=== PATIENT | female | born 1955 | race African-American/Black ===

== ENCOUNTER 2018-06-21 20:16 | Inpatient (IN) ==
--- NOTE | 2018-06-21 20:34 | ED ---
HPI General Chief Complaint: Shortness of Breath/Dyspnea Stated Complaint: SOB Time Seen by Provider: 06/21/18 20:34 Source: patient Mode of arrival: ambulatory Limitations: no limitations History of Present Illness 63-year-old female patient with history of lupus, rheumatoid arthritis, A. fib currently on Pradaxa, COPD, Raynaud's phenomena presents to the ER today because of shortness of breath, brought in by EMS, had been given Solu-Medrol and nebulizers on the ambulance and is starting to feel better. She has been coughing but denies any significant phlegm production. She denies any chest pains, fevers, or any other symptoms. Related Data Home Medications Medication Instructions Recorded Confirmed atovaquone 750 mg PO DAILY 06/21/18 06/21/18 azathioprine 50 mg PO DAILY 06/21/18 06/21/18 cholecalciferol (vitamin D3) 2,000 unit PO DAILY 06/21/18 06/21/18 [Vitamin D3] diltiazem HCl [Cardizem CD] 120 mg PO DAILY 06/21/18 06/21/18 furosemide 20 mg PO DAILY 06/21/18 06/21/18 hydroxychloroquine [Plaquenil] 200 mg PO DAILY 06/21/18 06/21/18 levalbuterol HCl 0.63 mg INHALATION Q4-6H PRN 06/21/18 06/21/18 macitentan [Opsumit] 10 mg PO DAILY 06/21/18 06/21/18 potassium chloride 10 meq PO BID 06/21/18 06/21/18 prednisone 5 mg PO DAILY 06/21/18 06/21/18 rivaroxaban [Xarelto] 20 mg PO QPM 06/21/18 06/21/18 rosuvastatin [Crestor] 10 mg PO DAILY 06/21/18 06/21/18 sotalol 80 mg PO Q12H 06/21/18 06/21/18 treprostinil [Tyvaso] 1 inh INHALATION Q4H 06/21/18 06/21/18 Allergies Allergy/AdvReac Type Severity Reaction Status Date / Time No Known Allergies Allergy Unverified 06/21/18 20:22 Review of Systems ROS: all other systems reviewed are negative [facility] Medical History Medical History Atrial fibrillation (Acute) CHF (congestive heart failure) (Acute) Emphysema, unspecified (Acute) Esophageal dysmotility (Acute) GERD (gastroesophageal reflux disease) (Acute) Hiatal hernia (Acute) Hx of hysterectomy (Acute) Hypertension (Acute) Kidney stone (Acute) Lupus (Acute) Pulmonary fibrosis (Acute) Pulmonary hypertension (Acute) Raynaud disease (Acute) Rheumatoid arthritis (Acute) Family History Family History Other Congestive heart failure Social History Social History Substance History: No History of Abuse Second Hand Smoke Exposure: No Smoking Status: Never smoker How Often Do You Have a Drink Containing Alcohol: Monthly or less Recent Travel in [facility] within the Last 8 Weeks: No Recent Out of Country Travel within the Last 8 Weeks: No Immunization History Tetanus Immunization: Unsure Hx Influenza Vaccine This Season: No Exam Narrative Exam Narrative: GENERAL: Well-developed elderly -[place] female patient currently in mild respiratory distress. Awake and oriented 3. SKIN: Focused skin assessment warm/dry. HEAD: Atraumatic. Normocephalic. EYES: Pupils equal and round. No scleral icterus. No injection or drainage. ENT: No nasal bleeding or discharge. Mucous membranes pink and moist. NECK: Trachea midline. No JVD. CARDIOVASCULAR: Regular rate and rhythm. No murmur appreciated. RESPIRATORY: No accessory muscle use. Mild intermittent wheezing bilaterally. Breath sounds equal bilaterally. GASTROINTESTINAL: Abdomen soft, non-tender, nondistended. Hepatic and splenic margins not palpable. MUSCULOSKELETAL: No obvious deformities. No clubbing. No cyanosis. No edema. NEUROLOGICAL: Awake and alert. No obvious cranial nerve deficits. Motor grossly within normal limits. Normal speech. PSYCHIATRIC: Appropriate mood and affect; insight and judgment normal. Course Initial Documented Vital Signs Temperature 97.9 F 06/21/18 20:22 Pulse Rate 80 06/21/18 20:22 Respiratory Rate 20 06/21/18 20:22 Blood Pressure 103/64 06/21/18 20:22 Pulse Oximetry 98 06/21/18 20:22 Last Documented Vital Signs Temperature 97.9 F 06/21/18 20:22 Pulse Rate 84 06/21/18 23:40 Respiratory Rate 18 06/21/18 23:40 Blood Pressure 103/64 06/21/18 20:22 Pulse Oximetry 98 06/21/18 23:40 Medical Decision Making MDM Narrative Medical decision making narrative: Patient apparently has been on a course of antibiotics, Bactrim, for UTI which she is finishing up. She was given Solu- Medrol and nebulizers by EMS and continued nebulizers were given in the ER. Breathing improved. However, her saturations are low intermittently and is on 4 L of O2. Chest x-ray showing interstitial changes questionable for underlying atypical pneumonia. IV antibiotics were initiated in the ER including ceftriaxone and Zithromax and at this point, plan would be to admit her for further evaluation and treatment of pneumonia. She appeared at this point has also failed outpatient therapy. Case is discussed with Dr. Cardenas for admission. Medical Screen Exam Complete: Yes Emergency Medical Condition: Yes Differential Diagnosis Differential Diagnosis: COPD versus pneumonia versus bronchitis Lab Data Lab results reviewed: Yes I reviewed the patient's lab results. Result diagrams: 06/21/18 20:35 06/21/18 22:04 Lab Results 06/21/18 06/21/18 06/21/18 Range/Units 20:35 20:35 22:04 WBC 7.8 (4.0-11.0) th/mm3 RBC 5.28 (4.00-5.30) mil/mm3 Hgb 12.7 (11.6-15.3) gm/dL Hct 42.3 (35.0-46.0) % MCV 80.1 (80.0-100.0) fL MCH 24.0 L (27.0-34.0) pg MCHC 29.9 L (32.0-36.0) % RDW 19.1 H (11.6-17.2) % Plt Count 260 (150-450) th/mm3 MPV 8.5 (7.0-11.0) fL Neut % (Auto) 86.1 H (16.0-70.0) % Lymph % (Auto) 7.2 L (9.0-44.0) % [place] % (Auto) 6.3 (0.0-8.0) % Eos % (Auto) 0.0 (0.0-4.0) % Baso % (Auto) 0.4 (0.0-2.0) % Neut # (Auto) 6.7 (1.8-7.7) th/mm3 Lymph # (Auto) 0.6 L (1.0-4.8) th/mm3 [place] # (Auto) 0.5 (0.0-0.9) th/mm3 Eos # (Auto) 0.0 (0.0-0.4) th/mm3 Baso # (Auto) 0.0 (0.0-0.2) th/mm3 WBC Differential . Differential Comment Auto diff final Sodium 139 (136-145) meq/L Potassium 6.4 H 5.6 H D (3.5-5.1) meq/L Chloride 106 (98-107) meq/L Carbon Dioxide 20.7 L (21.0-32.0) meq/L Anion Gap 12 (5-15) meq/L BUN 20 H (7-18) mg/dL Creatinine 1.17 H (0.50-1.00) mg/dL Estimated GFR 56 L (>89) mL/min Random Glucose 149 H (74-106) mg/dL Calcium 9.0 (8.5-10.1) mg/dL Total Bilirubin 0.6 (0.2-1.0) mg/dL AST 74 H (15-37) U/L ALT 114 H (10-53) U/L Alkaline Phosphatase 166 H (45-117) U/L Troponin I Less than 0.02 L (0.02-0.05) ng/mL Total Protein 7.0 (6.4-8.2) g/dL Albumin 3.7 (3.4-5.0) g/dL Imaging Data Attestation: I personally reviewed and interpreted this imaging study as follows : Radiologist's impression: Chest X-Ray 06/21/18 20:31 CONCLUSION: 1. Mild increased interstitial markings are noted consistent with acute or chronic interstitial process. Clinical correlation is recommended. 2. Mild cardiomegaly. Discharge Plan Discharge Disposition Patient Disposition: 30 Still Patient Discharge Condition Condition: Stable Discharge Details Anticipated Discharge Date: 06/21/18 Diagnosis: Community acquired pneumonia, Asthma with exacerbation Physicians Team ED Provider: Koby Centeno Primary Care Provider: UNKNOWN, Attending Provider: Audra Cardenas Status ED Status: Admitted Patient
--- NOTE | 2018-06-21 20:50 | XR ---
EXAM DATE: 06/21/2018 8:42 PM EDT AGE/SEX: 63 years / Female INDICATIONS: Short of breath CLINICAL DATA: This is the patient's initial encounter. Patient reports that signs and symptoms have been present for 1 day and indicates a pain score of 0/10. MEDICAL/SURGICAL HISTORY: Chronic obstructive pulmonary disease. Hypertension. A-fib None. COMPARISON: No prior exams available for comparison. FINDINGS: The heart is enlarged. Mild increased interstitial markings are noted consistent with acute or chroni c interstitial process. Clinical correlation is recommended. CONCLUSION: 1. Mild increased interstitial markings are noted consistent with acute or chronic interstitial proc ess. Clinical correlation is recommended. 2. Mild cardiomegaly. Electronically signed by: Leo Alex MD 06/21/2018 8:49 PM EDT
[2018-06-21 21:23] LABS: Baso % (Auto) 0.4 % (0.0-2.0); Hematocrit 42.3 % (35.0-46.0); Hemoglobin 12.7 gm/dL (11.6-15.3); Lymph # (Auto) 0.6 th/mm3 (1.0-4.8); Lymph % (Auto) 7.2 % (9.0-44.0); Mean Corpuscular Volume 80.1 fL (80.0-100.0); Mean Platelet Volume 8.5 fL (7.0-11.0); Mono # (Auto) 0.5 th/mm3 (0.0-0.9); Mono % (Auto) 6.3 % (0.0-8.0); Neut # (Auto) 6.7 th/mm3 (1.8-7.7); Neut % (Auto) 86.1 % (16.0-70.0); Platelet Count 260 th/mm3 (150-450); Red Blood Count 5.28 mil/mm3 (4.00-5.30); Red Cell Distribution Width 19.1 % (11.6-17.2); White Blood Count 7.8 th/mm3 (4.0-11.0)
[2018-06-21 21:24] LABS: Mean Corpuscular HGB Conc 29.9 % (32.0-36.0)
[2018-06-21 21:42] LABS: Alanine Aminotransferase 114 U/L (10-53); Albumin 3.7 g/dL (3.4-5.0); Alkaline Phosphatase 166 U/L (45-117); Anion Gap 12 meq/L (5-15); Aspartate Aminotransferase 74 U/L (15-37); Blood Urea Nitrogen 20 mg/dL (7-18); Carbon Dioxide 20.7 meq/L (21.0-32.0); Chloride 106 meq/L (98-107); Glomerular Filtration Rate 56 mL/min (>89); Glucose,Random 149 mg/dL (74-106); Sodium 139 meq/L (136-145)
[2018-06-21 21:48] LABS: Potassium 6.4 meq/L (3.5-5.1)
[2018-06-21] MEDS ORDERED: Azithromycin Inj 500 MG in Sodium Chlor 0.9% Inj 250 ML IV.SIG ONE (22:43)
[2018-06-21] MEDS ORDERED: Acetaminophen 325 MG Tablet PO PRN (23:18)
[2018-06-21] MEDS ORDERED: Bisacodyl 10 MG Supp RECTAL PRN (23:18)
--- NOTE | 2018-06-21 23:26 | P.HP ---
History of Present Illness Service: [facility] Primary Care Physician: UNKNOWN History of Present Illness: 63-year-old female with a past medical history for atrial fibrillation anticoagulated with Xarelto, CHF, COPD, GERD, lupus, pulmonary fibrosis, pulmonary hypertension, rheumatoid arthritis in Kumar nods presents to the emergency department for evaluation of shortness of breath. The patient reports she has been having increasing shortness of breath, worse with exertion for the past several weeks. She states today that it was so bad she came to the emergency department for further evaluation. She reports that she is unable to walk more than a few steps without becoming severely short of breath and having to rest. She endorses a cough productive of sputum. She denies any fever/chills. No chest pain. No abdominal pain. No nausea/vomiting/diarrhea. No lateralizing signs/symptoms. Inpatient Certification: I certify that the inpatient services were ordered in accordance with Medicare regulations governing the order. This includes certification that hospital inpatient services are reasonable and necessary and in the case of services not specified as inpatient-only under 42 CFR 419.22(n), that they are appropriately provided as inpatient services in accordance to with the 2-midnight benchmark under 43 CFR 412.3(e) Estimated Total Length of Stay (Days): 2 Plans for Post Hospital Care: Home Review of Systems All other systems reviewed negative except as stated in HPI [facility] - History History Provided By: Patient, Rn Staff / EMT - Medical History Medical History: Medical History (Last Reviewed 06/21/18 @ 20:33 by Koby Centeno MD) Atrial fibrillation CHF (congestive heart failure) Emphysema, unspecified Esophageal dysmotility GERD (gastroesophageal reflux disease) Hiatal hernia Hx of hysterectomy Hypertension Kidney stone Lupus Pulmonary fibrosis Pulmonary hypertension Raynaud disease Rheumatoid arthritis - Family History Family History: Family History (Last Updated 06/21/18 @ 23:22 by Audra Cardenas MD) Other Congestive heart failure - Tobacco History Second Hand Smoke Exposure: No Tobacco Use In Past 30 Days: No Smoking Status: Never smoker - Alcohol History How Often Do You Have a Drink Containing Alcohol: Monthly or less - Substance Use History Substance History: No History of Abuse - Travel History Recent Travel in the [place] Within the Last 8 Weeks: No Recent Travel Out of the Country Within the Last 8 Weeks: No - Immunization History Tetanus Immunization: Unsure Hx Influenza Vaccine This Season: No Medications and Allergies Active Medications: Active Medications Azithromycin 500 mg/ Sodium (Chloride) 250 mls @ 250 mls/hr IV.SIG ONCE ONE Stop: 06/21/18 23:42 Allergies Allergy/AdvReac Type Severity Reaction Status Date / Time No Known Allergies Allergy Unverified 06/21/18 20:22 Home Medications Medication Instructions Recorded Confirmed Type atovaquone 750 mg PO DAILY 06/21/18 06/21/18 History azathioprine 50 mg PO DAILY 06/21/18 06/21/18 History cholecalciferol (vitamin D3) 2,000 unit PO DAILY 06/21/18 06/21/18 History [Vitamin D3] diltiazem HCl [Cardizem CD] 120 mg PO DAILY 06/21/18 06/21/18 History furosemide 20 mg PO DAILY 06/21/18 06/21/18 History hydroxychloroquine [Plaquenil] 200 mg PO DAILY 06/21/18 06/21/18 History levalbuterol HCl 0.63 mg INHALATION Q4-6H PRN 06/21/18 06/21/18 History macitentan [Opsumit] 10 mg PO DAILY 06/21/18 06/21/18 History potassium chloride 10 meq PO BID 06/21/18 06/21/18 History prednisone 5 mg PO DAILY 06/21/18 06/21/18 History rivaroxaban [Xarelto] 20 mg PO QPM 06/21/18 06/21/18 History rosuvastatin [Crestor] 10 mg PO DAILY 06/21/18 06/21/18 History sotalol 80 mg PO Q12H 06/21/18 06/21/18 History treprostinil [Tyvaso] 1 inh INHALATION Q4H 06/21/18 06/21/18 History Exam Vital signs: Vital Signs 06/21/18 20:22 06/21/18 20:44 Temperature 97.9 F Pulse Rate 80 78 Respiratory Rate 20 20 Blood Pressure 103/64 Pulse Oximetry 98 Intake & Output 06/21/18 06/21/18 06/22/18 06:59 18:59 06:59 Weight 63.503 kg Narrative: Gen.: No acute distress Head: Normocephalic. Atraumatic. EENT: Pupils equal round and reactive to light. Nose without drainage. Airway intact. Throat without injection. Cardiovascular: Regular rate and rhythm. No murmurs, rubs or gallops. Respiratory: Poor air movement. Bilateral wheezing. Abdomen: Soft, nontender, nondistended. No peritoneal signs. Musculoskeletal: No gross deformities. No edema. Skin: No obvious rashes or erythema. Neuro: Sensory and motor grossly intact. Cranial nerves II through XII grossly intact. Results - Labs CBC & Chem 7: 06/21/18 20:35 06/21/18 22:04 Labs: Laboratory Results - last 24 hr 06/21/18 06/21/18 06/21/18 20:35 20:35 22:04 WBC 7.8 RBC 5.28 Hgb 12.7 Hct 42.3 MCV 80.1 MCH 24.0 L MCHC 29.9 L RDW 19.1 H Plt Count 260 MPV 8.5 Neut % (Auto) 86.1 H Lymph % (Auto) 7.2 L [place] % (Auto) 6.3 Eos % (Auto) 0.0 Baso % (Auto) 0.4 Neut # (Auto) 6.7 Lymph # (Auto) 0.6 L [place] # (Auto) 0.5 Eos # (Auto) 0.0 Baso # (Auto) 0.0 WBC Differential . Differential Comment Auto diff final Sodium 139 Potassium 6.4 H 5.6 H D Chloride 106 Carbon Dioxide 20.7 L Anion Gap 12 BUN 20 H Creatinine 1.17 H Estimated GFR 56 L Random Glucose 149 H Calcium 9.0 Total Bilirubin 0.6 AST 74 H ALT 114 H Alkaline Phosphatase 166 H Troponin I Less than 0.02 L Total Protein 7.0 Albumin 3.7 - Imaging Impressions Chest X-Ray 06/21/18 20:31 CONCLUSION: 1. Mild increased interstitial markings are noted consistent with acute or chronic interstitial process. Clinical correlation is recommended. 2. Mild cardiomegaly. Caprini VTE Risk Assessment Caprini VTE Risk Assessment: Moderate/High Risk (score >= 2) Caprini Risk Assessment Model: Point Value = 1 Point Value = 2 Point Value = 3 Point Value = 5 Age 41-60 Minor surgery BMI > 25 kg/m2 Swollen legs Varicose veins or History of unexplained or recurrent spontaneous Oral contraceptives or hormone replacement Sepsis (< 1 month) Serious lung disease, including pneumonia (< 1 month) Abnormal pulmonary function Acute myocardial infarction Congestive heart failure (< 1 month) History of inflammatory bowel disease Medical patient at bed rest Age 61-74 Arthroscopic surgery Major open surgery (> 45 min) Laparoscopic surgery (> 45 min) Malignancy Confined to bed (> 72 hours) Immobilizing plaster cast Central venous access Age >= 75 History of VTE Family history of VTE Factor V Leiden Prothrombin [id number] Lupus anticoagulant Anticardiolipin antibodies Elevated serum homocysteine Heparin-induced thrombocytopenia Other congenital or acquired thrombophilia Stroke (< 1 month) Elective arthroplasty Hip, pelvis, or leg fracture Acute spinal cord injury (< 1 month) Prophylaxis Regimen: Total Risk Factor Score Risk Level Prophylaxis Regimen 0-1 Low Early ambulation 2 Moderate Order ONE of the following: *Sequential Compression Device (SCD) *Heparin 5000 units SQ BID 3-4 Higher Order ONE of the following medications: *Heparin 5000 units SQ TID *Enoxaparin/Lovenox 40 mg SQ daily (WT < 150 kg, CrCl > 30 mL/min) *Enoxaparin/Lovenox 30 mg SQ daily (WT < 150 kg, CrCl > 10-29 mL/min) *Enoxaparin/Lovenox 30 mg SQ BID (WT < 150 kg, CrCl > 30 mL/min) AND/OR *Sequential Compression Device (SCD) 5 or more Highest Order ONE of the following medications: *Heparin 5000 units SQ TID (Preferred with Epidurals) *Enoxaparin/Lovenox 40 mg SQ daily (WT < 150 kg, CrCl > 30 mL/min) *Enoxaparin/Lovenox 30 mg SQ daily (WT < 150 kg, CrCl > 10-29 mL/min) *Enoxaparin/Lovenox 30 mg SQ BID (WT < 150 kg, CrCl > 30 mL/min) AND *Sequential Compression Device (SCD) Assessment and Plan - Plan Assessment/plan: 1. COPD exacerbation/PNA Patient with hypoxia, requiring supplemental oxygen Chest x-ray significant for increased interstitial markings consistent with acute versus chronic interstitial process, given increased sputum production and cough with shortness of breath concerning for pneumonia Rocephin/azithromycin Duo nebs Solu-Medrol 2. Atrial fibrillation Continue anticoagulation with Xarelto Continue home medications 3. Rheumatoid arthritis/lupus Continue home medications 4. Hypertension/pulmonary hypertension/CHF Continue home medications 5. Urinary tract infection Patient previously diagnosed with urinary tract infection, has 1 more day of Bactrim UA pending Antibiotics as above FEN Heart healthy diet Electrolytes: Monitor and replete as needed Xarelto
[2018-06-21] MEDS ORDERED: Heparin - SQ 10,000 UNITS/ML Vial SQ SCH (23:30)
[2018-06-22 00:51] LABS: Bilirubin,Urine Negative (Negative); Clarity,Urine Hazy (Clear); Color,Urine Yellow (Yellw/Straw); Glucose,Urine (UA) Negative (Negative); Hyaline Casts,Urine 21 /lpf (0-3); Leukocyte Esterase,Urine Negative (Negative); Mucus,Urine Few /lpf (Occasional); Nitrite,Urine Negative (Negative); Specific Gravity,Urine 1.018 (1.002-1.035); Squamous Epithelial Cell,Urine <1 /hpf (0-5); Urobilinogen,Urine 4 or Greater mg/dL (Less than 2)
[2018-06-22] MEDS: MethylPREDNISolone Sod Succinate Inj 125 MG/2 ML Vial IV.PUSH SCH ×5 (01:39→23:29)
[2018-06-22 07:52] LABS: Baso % (Auto) 0.4 % (0.0-2.0); Hematocrit 37.7 % (35.0-46.0); Hemoglobin 11.6 gm/dL (11.6-15.3); Lymph # (Auto) 0.5 th/mm3 (1.0-4.8); Lymph % (Auto) 10.6 % (9.0-44.0); Mean Corpuscular Hemoglobin 23.7 pg (27.0-34.0); Mean Corpuscular Volume 76.7 fL (80.0-100.0); Mean Platelet Volume 8.5 fL (7.0-11.0); Mono # (Auto) 0.1 th/mm3 (0.0-0.9); Neut # (Auto) 3.8 th/mm3 (1.8-7.7); Platelet Count 223 th/mm3 (150-450); Red Blood Count 4.91 mil/mm3 (4.00-5.30); Red Cell Distribution Width 18.3 % (11.6-17.2); White Blood Count 4.4 th/mm3 (4.0-11.0)
[2018-06-22 08:04] LABS: Mean Corpuscular HGB Conc 30.9 % (32.0-36.0)
[2018-06-22 08:19] LABS: Anion Gap 10 meq/L (5-15); Blood Urea Nitrogen 22 mg/dL (7-18); Calcium 8.6 mg/dL (8.5-10.1); Chloride 109 meq/L (98-107); Glomerular Filtration Rate 83 mL/min (>89); Glucose,Random 102 mg/dL (74-106); Potassium 4.8 meq/L (3.5-5.1); Sodium 142 meq/L (136-145)
[2018-06-22] MEDS ORDERED: MACITENTAN 10 MG PO SCH (09:00)
[2018-06-22 09:41] LABS: Albumin 3.5 g/dL (3.4-5.0); Aspartate Aminotransferase 59 U/L (15-37); Total Protein 6.2 g/dL (6.4-8.2)
[2018-06-22 09:53] LABS: Alanine Aminotransferase 140 U/L (10-53)
[2018-06-22 09:55] LABS: Alkaline Phosphatase 162 U/L (45-117)
[2018-06-22] MEDS: azaTHIOprine 50 MG Tablet PO SCH (10:07)
--- NOTE | 2018-06-22 10:07 | P.PNIM ---
Subjective Interval history: Follow-up shortness of breath. Patient laying in bed and O2 via nasal cannula complains of shortness of breath on exertion, better with rest. Patient complains of some coughing previously none today. Denies any chest pain, nausea vomiting or dizziness. Patient stated she uses oxygen at home for many years since 2014. States that she has been seeing Dr. Roberts as her return to [facility] an [facility]. Patient also complaining of mild lower extremity swelling, which she is taking Lasix at home. Patient states that she tends to elevate her legs and watch her sodium intake. Patient states that she had atrial fibrillation and has been seeing a water truck driver in [place] Dr. Corral. Physical Exam Vital signs: Vital Signs 06/21/18 20:22 06/21/18 20:44 06/21/18 21:00 Temperature 97.9 F Pulse Rate 80 78 78 Respiratory Rate 20 20 16 Blood Pressure 103/64 105/80 Pulse Oximetry 98 98 06/21/18 22:00 06/21/18 23:00 06/21/18 23:40 Temperature Pulse Rate 82 82 84 Respiratory Rate 18 16 18 Blood Pressure 100/70 106/75 Pulse Oximetry 95 97 98 06/22/18 00:00 06/22/18 01:26 06/22/18 01:54 Temperature 97.3 F L Pulse Rate 82 89 85 Respiratory Rate 16 20 20 Blood Pressure 100/78 83/65 L 94/60 L Pulse Oximetry 98 87 L 93 L 06/22/18 02:00 06/22/18 03:39 06/22/18 03:42 Temperature Pulse Rate 90 Respiratory Rate 19 Blood Pressure Pulse Oximetry 93 L 96 96 06/22/18 04:00 06/22/18 07:29 06/22/18 08:00 Temperature 97.7 F 97.6 F Pulse Rate 86 83 82 Respiratory Rate 20 14 14 Blood Pressure 106/79 121/80 Pulse Oximetry 90 L 94 L 98 Intake & Output 06/21/18 06/22/18 06/22/18 18:59 06:59 18:59 Intake Total 350 / 350 Balance 350 / 350 Weight 60.7 kg Intake: IV 350 / 350 Azithromycin Inj 500 MG In NS 250 / 250 Inj 250 ML @ 250 mls/hr IV.SIG ONCE ONE Rx#:[id number] Rocephin Inj 1,000 MG In NS Inj 100 / 100 100 ML @ 200 mls/hr IV.SIG ONCE ONE Rx#:[id number] Other: Weight On Admission 60.7 kg Narrative: GENERAL: frail female with no apparent distress SKIN: Warm and dry. HEAD: Atraumatic. Normocephalic. EYES: Pupils equal and round. No scleral icterus. No injection or drainage. ENT: No nasal bleeding or discharge. Mucous membranes pink and moist. NECK: Trachea midline. No JVD. CARDIOVASCULAR: Regular rate and rhythm. bilateral lower extremity trace edema RESPIRATORY: No accessory muscle use. slight expiratory wheezes with auscultation. Breath sounds equal bilaterally. GASTROINTESTINAL: Abdomen soft, non-tender, nondistended. Hepatic and splenic margins not palpable. MUSCULOSKELETAL: Extremities without clubbing, cyanosis, or edema. No obvious deformities. NEUROLOGICAL: Awake and alert. No obvious cranial nerve deficits. Motor grossly within normal limits. Five out of 5 muscle strength in the arms and legs. Normal speech. PSYCHIATRIC: Appropriate mood and affect; insight and judgment normal. Results - Labs CBC & Chem 7: 06/22/18 05:47 06/22/18 05:47 Laboratory Results - last 24 hr 06/21/18 06/21/18 06/21/18 20:35 20:35 22:04 WBC 7.8 RBC 5.28 Hgb 12.7 Hct 42.3 MCV 80.1 MCH 24.0 L MCHC 29.9 L RDW 19.1 H Plt Count 260 MPV 8.5 Neut % (Auto) 86.1 H Lymph % (Auto) 7.2 L Howell % (Auto) 6.3 Eos % (Auto) 0.0 Baso % (Auto) 0.4 Neut # (Auto) 6.7 Lymph # (Auto) 0.6 L Howell # (Auto) 0.5 Eos # (Auto) 0.0 Baso # (Auto) 0.0 WBC Differential . Differential Comment Auto diff final Sodium 139 Potassium 6.4 H 5.6 H D Chloride 106 Carbon Dioxide 20.7 L Anion Gap 12 BUN 20 H Creatinine 1.17 H Estimated GFR 56 L Random Glucose 149 H Calcium 9.0 Prot Corrected Calcium Total Bilirubin 0.6 AST 74 H ALT 114 H Alkaline Phosphatase 166 H Troponin I Less than 0.02 L Total Protein 7.0 Albumin 3.7 Urine Color Urine Clarity Urine pH Ur Specific Hidalgo Urine Protein Urine Glucose (UA) Urine Ketones Urine Occult Blood Urine Nitrate Urine Bilirubin Urine Urobilinogen Ur Leukocyte Esterase Urine RBC Urine WBC Ur Squamous Epith Cells Hyaline Casts Urine Mucus Micro UA Comment Ur Microscopic Review Urine Culture Comments 06/22/18 06/22/18 06/22/18 00:28 05:47 05:47 WBC 4.4 RBC 4.91 Hgb 11.6 Hct 37.7 MCV 76.7 L MCH 23.7 L MCHC 30.9 L RDW 18.3 H Plt Count 223 MPV 8.5 Neut % (Auto) 87.0 H Lymph % (Auto) 10.6 Howell % (Auto) 2.0 Eos % (Auto) 0.0 Baso % (Auto) 0.4 Neut # (Auto) 3.8 Lymph # (Auto) 0.5 L Howell # (Auto) 0.1 Eos # (Auto) 0.0 Baso # (Auto) 0.0 WBC Differential . Differential Comment Auto diff final Sodium 142 Potassium 4.8 D Chloride 109 H Carbon Dioxide 23.0 Anion Gap 10 BUN 22 H Creatinine 0.83 Estimated GFR 83 L Random Glucose 102 Calcium 8.6 Prot Corrected Calcium Total Bilirubin 0.3 AST 59 H ALT 140 H Alkaline Phosphatase 162 H Troponin I Total Protein 6.2 L D Albumin 3.5 Urine Color Yellow Urine Clarity Hazy H Urine pH 6.0 Ur Specific Hidalgo 1.018 Urine Protein 100 H Urine Glucose (UA) Negative Urine Ketones Negative Urine Occult Blood Negative Urine Nitrate Negative Urine Bilirubin Negative Urine Urobilinogen 4 or greater Ur Leukocyte Esterase Negative Urine RBC 1 Urine WBC 1 Ur Squamous Epith Cells <1 Hyaline Casts 21 Urine Mucus Few H Micro UA Comment Culture not ind Ur Microscopic Review Not Reportable Urine Culture Comments Culture not ind 06/22/18 05:47 WBC RBC Hgb Hct MCV MCH MCHC RDW Plt Count MPV Neut % (Auto) Lymph % (Auto) Howell % (Auto) Eos % (Auto) Baso % (Auto) Neut # (Auto) Lymph # (Auto) Howell # (Auto) Eos # (Auto) Baso # (Auto) WBC Differential Differential Comment Sodium Cancelled Potassium Cancelled Chloride Cancelled Carbon Dioxide Cancelled Anion Gap Cancelled BUN Cancelled Creatinine Cancelled Estimated GFR Cancelled Random Glucose Cancelled Calcium Cancelled Prot Corrected Calcium Cancelled Total Bilirubin Cancelled AST Cancelled ALT Cancelled Alkaline Phosphatase Cancelled Troponin I Total Protein Cancelled Albumin Cancelled Urine Color Urine Clarity Urine pH Ur Specific [place] Urine Protein Urine Glucose (UA) Urine Ketones Urine Occult Blood Urine Nitrate Urine Bilirubin Urine Urobilinogen Ur Leukocyte Esterase Urine RBC Urine WBC Ur Squamous Epith Cells Hyaline Casts Urine Mucus Micro UA Comment Ur Microscopic Review Urine Culture Comments - Imaging Impressions Chest X-Ray 06/21/18 20:31 CONCLUSION: 1. Mild increased interstitial markings are noted consistent with acute or chronic interstitial process. Clinical correlation is recommended. 2. Mild cardiomegaly. Assessment and Plan - Assessment (1) COPD exacerbation Code(s): J44.1 - Chronic obstructive pulmonary disease with (acute) exacerbation Status: Acute (2) Afib Code(s): I48.91 - Unspecified atrial fibrillation Status: Acute (3) CHF (congestive heart failure) Code(s): I50.9 - Heart failure, unspecified Status: Acute - Plan Patient is a 63-year-old female with a past medical history for atrial fibrillation anticoagulated with Xarelto, CHF, COPD, GERD, lupus, pulmonary fibrosis, pulmonary hypertension, rheumatoid arthritis, Raynaud's phenomena who presents to the emergency department for evaluation of shortness of breath. The patient reports she has been having increasing shortness of breath, worse with exertion for the past several weeks. COPD exacerbation/PNA Chest x-ray significant for increased interstitial markings consistent with acute versus chronic interstitial process, given increased sputum production and cough with shortness of breath concerning for pneumonia - with hypoxia, continue Oxygen supplementation -continue Rocephin/azithromycin -continue Duo nebs -continue Solu-Medrol Atrial fibrillation -Continue anticoagulation with Xarelto -Continue home medications -HR slightly elevated today in 100's, continue sotalol and diltiazem, monitor HR Rheumatoid arthritis/lupus Continue home medications Hypertension/pulmonary hypertension/CHF -Continue home medications -check BNP Urinary tract infection -Patient previously diagnosed with urinary tract infection -UA culture not indicated -monitor signs and symptoms Elevated Liver Enzymes - improving -monitor LFT's Discharge Planning: Plan to d/c home when respiratory status improved. (Patient already had home Oxygen).
[2018-06-22] MEDS: Hydroxychloroquine 200 MG Tablet PO SCH (10:08)
[2018-06-22] MEDS: Senna/Docusate Sodium 8.6/50 MG Tablet PO SCH ×2 (10:09→21:44)
[2018-06-22] MEDS: dilTIAZem CD 120 MG Capsule PO SCH (10:12)
[2018-06-22] MEDS: Furosemide 20 MG Tablet PO SCH (10:12)
[2018-06-22] MEDS: ATOVAQUONE 750 MG/5 ML PO SCH (10:13)
[2018-06-22] MEDS: Rivaroxaban 20 MG Tablet PO SCH (17:55)
[2018-06-22] MEDS: Azithromycin Inj 500 MG in Sodium Chlor 0.9% Inj 250 ML IV.SIG SCH (23:29)
[2018-06-23] MEDS: MethylPREDNISolone Sod Succinate Inj 125 MG/2 ML Vial IV.PUSH SCH (05:52)
[2018-06-23 07:23] LABS: Baso % (Auto) 0.2 % (0.0-2.0); Hematocrit 36.8 % (35.0-46.0); Hemoglobin 11.3 gm/dL (11.6-15.3); Lymph # (Auto) 0.3 th/mm3 (1.0-4.8); Lymph % (Auto) 5.1 % (9.0-44.0); Mean Corpuscular Hemoglobin 23.9 pg (27.0-34.0); Mean Corpuscular Volume 77.8 fL (80.0-100.0); Mean Platelet Volume 8.5 fL (7.0-11.0); Mono # (Auto) 0.2 th/mm3 (0.0-0.9); Mono % (Auto) 4.3 % (0.0-8.0); Neut # (Auto) 5.3 th/mm3 (1.8-7.7); Neut % (Auto) 90.4 % (16.0-70.0); Platelet Count 228 th/mm3 (150-450); Red Blood Count 4.73 mil/mm3 (4.00-5.30); Red Cell Distribution Width 18.6 % (11.6-17.2); White Blood Count 5.8 th/mm3 (4.0-11.0)
[2018-06-23 07:25] LABS: Mean Corpuscular HGB Conc 30.7 % (32.0-36.0)
[2018-06-23 07:46] LABS: Alanine Aminotransferase 87 U/L (10-53); Albumin 3.2 g/dL (3.4-5.0); Anion Gap 7 meq/L (5-15); Aspartate Aminotransferase 28 U/L (15-37); Blood Urea Nitrogen 23 mg/dL (7-18); Carbon Dioxide 25.6 meq/L (21.0-32.0); Chloride 107 meq/L (98-107); Glomerular Filtration Rate 79 mL/min (>89); Glucose,Random 143 mg/dL (74-106); Potassium 4.9 meq/L (3.5-5.1); Sodium 140 meq/L (136-145)
[2018-06-23 07:48] LABS: Alkaline Phosphatase 141 U/L (45-117); Total Protein 5.9 g/dL (6.4-8.2)
--- NOTE | 2018-06-23 08:57 | P.PNIM ---
Subjective Interval history: Breathing is a little better today, especially at rest, but the patient reports that even walking to the bathroom in her room she is getting extremely dyspneic. She states normally she is able to walk around the house without any breathing problems at baseline. Reports she is on 45 L O2 at home, currently on 6. He has a very slight frothy cough. She denies any significant orthopnea. Physical Exam Vital signs: Vital Signs 06/22/18 11:06 06/22/18 12:00 06/22/18 12:30 Temperature 97.3 F L Pulse Rate 100 H 112 H Respiratory Rate 18 26 H Blood Pressure 127/89 Pulse Oximetry 91 L 90 L 06/22/18 16:00 06/22/18 16:34 06/22/18 20:00 Temperature 97.5 F L 98.4 F Pulse Rate 94 H 92 H 95 H Respiratory Rate 18 22 18 Blood Pressure 96/67 L 108/76 Pulse Oximetry 91 L 92 L 06/22/18 20:23 06/22/18 21:49 06/23/18 00:00 Temperature 98.2 F Pulse Rate 92 H 90 Respiratory Rate 17 Blood Pressure 106/69 Pulse Oximetry 92 L 92 L 06/23/18 00:13 06/23/18 04:00 06/23/18 04:49 Temperature Pulse Rate 90 72 87 Respiratory Rate 20 16 Blood Pressure Pulse Oximetry 91 L 99 Intake & Output 06/22/18 06/23/18 06/23/18 18:59 06:59 18:59 Intake Total 800 / 800 350 / 350 Output Total 400 / 400 Balance 400 / 400 350 / 350 Weight 133 lb 13.129 oz Intake: IV 350 / 350 Azithromycin Inj 500 MG In NS 250 / 250 Inj 250 ML @ 250 mls/hr IV.SIG Q24H [facility] Rx#:[id number] Rocephin Inj 1,000 MG In NS Inj 100 / 100 100 ML @ 200 mls/hr IV.SIG Q24H [facility] Rx#:[id number] Oral 800 / 800 Output: Urine 400 / 400 Other: # Voids 2 Date of Last Bowel Movement 06/21/18 Narrative: GENERAL: Well-developed well-nourished. In no acute distress. Appears comfortable on 6 L O2. SKIN: Warm and dry. No lesions noted. CARDIOVASCULAR: Regular rate and rhythm. No murmur appreciated. RESPIRATORY: No accessory muscle use. Clear to auscultation. Breath sounds equal bilaterally. GASTROINTESTINAL: Abdomen soft, non-tender, nondistended. Bowel sounds x4. MUSCULOSKELETAL: No obvious deformities. No clubbing or cyanosis. No edema. NEUROLOGICAL: Awake and alert. Moves upper and lower extremities spontaneously. Normal speech. PSYCHIATRIC: Appropriate mood and affect; insight and judgment normal. Results - Labs CBC & Chem 7: 06/23/18 05:57 06/23/18 05:57 Laboratory Results - last 24 hr 06/22/18 06/22/18 06/22/18 05:47 05:47 05:47 WBC RBC Hgb Hct MCV MCH MCHC RDW Plt Count MPV Neut % (Auto) Lymph % (Auto) Rains % (Auto) Eos % (Auto) Baso % (Auto) Neut # (Auto) Lymph # (Auto) Rains # (Auto) Eos # (Auto) Baso # (Auto) WBC Differential Differential Comment Sodium 142 Cancelled Potassium 4.8 D Cancelled Chloride 109 H Cancelled Carbon Dioxide 23.0 Cancelled Anion Gap 10 Cancelled BUN 22 H Cancelled Creatinine 0.83 Cancelled Estimated GFR 83 L Cancelled Random Glucose 102 Cancelled Calcium 8.6 Cancelled Prot Corrected Calcium Cancelled Total Bilirubin 0.3 Cancelled AST 59 H Cancelled ALT 140 H Cancelled Alkaline Phosphatase 162 H Cancelled B-Natriuretic Peptide 1474 H Total Protein 6.2 L D Cancelled Albumin 3.5 Cancelled 06/23/18 06/23/18 05:57 05:57 WBC 5.8 RBC 4.73 Hgb 11.3 L Hct 36.8 MCV 77.8 L MCH 23.9 L MCHC 30.7 L RDW 18.6 H Plt Count 228 MPV 8.5 Neut % (Auto) 90.4 H Lymph % (Auto) 5.1 L Rains % (Auto) 4.3 Eos % (Auto) 0.0 Baso % (Auto) 0.2 Neut # (Auto) 5.3 Lymph # (Auto) 0.3 L Rains # (Auto) 0.2 Eos # (Auto) 0.0 Baso # (Auto) 0.0 WBC Differential . Differential Comment Auto diff final Sodium 140 Potassium 4.9 Chloride 107 Carbon Dioxide 25.6 Anion Gap 7 BUN 23 H Creatinine 0.87 Estimated GFR 79 L Random Glucose 143 H Calcium 9.0 Prot Corrected Calcium Total Bilirubin 0.2 AST 28 ALT 87 H Alkaline Phosphatase 141 H B-Natriuretic Peptide Total Protein 5.9 L Albumin 3.2 L Microbiology 06/21/18 23:35 Blood - Peripheral Aerobic Blood Culture - Preliminary No growth in 1 day 06/21/18 23:35 Blood - Peripheral Anaerobic Blood Culture - Preliminary No growth in 1 day 06/21/18 23:30 Blood - Peripheral Aerobic Blood Culture - Preliminary No growth in 1 day 06/21/18 23:30 Blood - Peripheral Anaerobic Blood Culture - Preliminary No growth in 1 day Assessment and Plan - Plan 63-year-old female with a past medical history for atrial fibrillation anticoagulated with Xarelto, CHF, COPD, GERD, lupus, pulmonary fibrosis, pulmonary hypertension, rheumatoid arthritis, Raynaud's phenomena who presented for evaluation of shortness of breath. The patient reports she has been having increasing shortness of breath, worse with exertion for the past several weeks. COPD exacerbation/PNA Chest x-ray significant for increased interstitial markings consistent with acute versus chronic interstitial process, given increased sputum production and cough with shortness of breath concerning for pneumonia -with hypoxia, continue Oxygen supplementation, currently on 6 L, titrate down to baseline 45 L -continue Rocephin/azithromycin -continue Duo nebs -continue Solu-Medrol, taper dose to 40 mg -Ambulate with PT Atrial fibrillation, currently NSR -Continue anticoagulation with Xarelto -Continue home medications Rheumatoid arthritis/lupus Continue home medications Congestive heart failure -Currently appears compensated on home dose of Lasix. Elevated Liver Enzymes -Mildly elevated and trending down -monitor Discharge Planning: Anticipate discharge in 12 days pending improvement in breathing
[2018-06-23] MEDS: Furosemide 20 MG Tablet PO SCH (09:36)
[2018-06-23] MEDS: Senna/Docusate Sodium 8.6/50 MG Tablet PO SCH ×2 (09:36→23:06)
[2018-06-23] MEDS: azaTHIOprine 50 MG Tablet PO SCH (09:38)
[2018-06-23] MEDS: dilTIAZem CD 120 MG Capsule PO SCH (09:39)
[2018-06-23] MEDS: ATOVAQUONE 750 MG/5 ML PO SCH (09:39)
[2018-06-23] MEDS: Hydroxychloroquine 200 MG Tablet PO SCH (09:39)
[2018-06-23] MEDS: MethylPREDNISolone Sod Succinate Inj 40 MG/ML Vial IV.PUSH SCH ×2 (11:50→17:25)
[2018-06-23] MEDS: Rivaroxaban 20 MG Tablet PO SCH (17:25)
[2018-06-23] MEDS: Azithromycin Inj 500 MG in Sodium Chlor 0.9% Inj 250 ML IV.SIG SCH (23:07)
[2018-06-24] MEDS: MethylPREDNISolone Sod Succinate Inj 40 MG/ML Vial IV.PUSH SCH ×4 (00:12→15:31)
[2018-06-24] MEDS: dilTIAZem CD 120 MG Capsule PO SCH (08:28)
[2018-06-24] MEDS: ATOVAQUONE 750 MG/5 ML PO SCH (08:41)
[2018-06-24] MEDS: Senna/Docusate Sodium 8.6/50 MG Tablet PO SCH ×2 (08:41→22:24)
[2018-06-24] MEDS: Furosemide 20 MG Tablet PO SCH (08:42)
[2018-06-24] MEDS: dilTIAZem 30 MG Tablet PO SCH ×5 (08:42→22:25)
[2018-06-24] MEDS: Hydroxychloroquine 200 MG Tablet PO SCH (08:43)
[2018-06-24] MEDS: azaTHIOprine 50 MG Tablet PO SCH (08:43)
[2018-06-24] MEDS ORDERED: Magnesium Citrate Liq 300 ML Bottle PO ONE (10:40)
--- NOTE | 2018-06-24 13:46 | P.PNIM ---
Subjective Interval history: Breathing is much better today, especially at rest, but the patient reports that with minimal exertion she is gets SOB. Reports she is on 45 L O2 at home , currently on 6. She denies any significant orthopnea. Physical Exam Vital signs: Vital Signs 06/23/18 16:00 06/23/18 17:08 06/23/18 20:00 Temperature 97.9 F 97.9 F Pulse Rate 76 76 75 Respiratory Rate 18 19 18 Blood Pressure 91/63 L 99/72 L Pulse Oximetry 98 95 06/23/18 22:07 06/24/18 00:00 06/24/18 03:52 Temperature 97.5 F L Pulse Rate 87 81 79 Respiratory Rate 16 18 16 Blood Pressure 107/74 Pulse Oximetry 92 L 97 06/24/18 04:00 06/24/18 06:58 06/24/18 08:00 Temperature 97.4 F L 97.2 F L Pulse Rate 77 78 96 H Respiratory Rate 18 17 Blood Pressure 101/72 111/72 Pulse Oximetry 97 92 L 06/24/18 09:00 06/24/18 11:46 06/24/18 12:00 Temperature 97.6 F Pulse Rate 96 H 87 89 Respiratory Rate 24 16 Blood Pressure 113/55 L Pulse Oximetry 90 L Intake & Output 06/23/18 06/24/18 06/24/18 18:59 06:59 18:59 Intake Total 1600 / 1600 350 / 350 Output Total 600 / 600 300 / 300 Balance 1000 / 1000 50 / 50 Weight 66.4 kg Intake: IV 350 / 350 Azithromycin Inj 500 MG In NS 250 / 250 Inj 250 ML @ 250 mls/hr IV.SIG Q24H [facility] Rx#:[id number] Rocephin Inj 1,000 MG In NS Inj 100 / 100 100 ML @ 200 mls/hr IV.SIG Q24H [facility] Rx#:[id number] Oral 1600 / 1600 Output: Urine 600 / 600 300 / 300 Other: Date of Last Bowel Movement 06/21/18 06/22/18 06/22/18 Narrative: GENERAL: Well-developed well-nourished. In no acute distress. Appears comfortable on 6 L O2. SKIN: Warm and dry. No lesions noted. CARDIOVASCULAR: Regular rate and rhythm. No murmur appreciated. RESPIRATORY: No accessory muscle use. Clear to auscultation. Breath sounds equal bilaterally. GASTROINTESTINAL: Abdomen soft, non-tender, nondistended. Bowel sounds x4. MUSCULOSKELETAL: No obvious deformities. No clubbing or cyanosis. No edema. NEUROLOGICAL: Awake and alert. Moves upper and lower extremities spontaneously. Normal speech. PSYCHIATRIC: Appropriate mood and affect; insight and judgment normal. Results - Labs CBC & Chem 7: 06/23/18 05:57 06/23/18 05:57 Microbiology 06/21/18 23:35 Blood - Peripheral Aerobic Blood Culture - Preliminary No growth in 3 days 06/21/18 23:35 Blood - Peripheral Anaerobic Blood Culture - Preliminary No growth in 3 days 06/21/18 23:30 Blood - Peripheral Aerobic Blood Culture - Preliminary No growth in 3 days 06/21/18 23:30 Blood - Peripheral Anaerobic Blood Culture - Preliminary No growth in 3 days Assessment and Plan - Plan 63-year-old female with a past medical history for atrial fibrillation anticoagulated with Xarelto, CHF, COPD, GERD, lupus, pulmonary fibrosis, pulmonary hypertension, rheumatoid arthritis, Raynaud's phenomena who presented for evaluation of shortness of breath. The patient reports she has been having increasing shortness of breath, worse with exertion for the past several weeks. COPD exacerbation/PNA Chest x-ray significant for increased interstitial markings consistent with acute versus chronic interstitial process, given increased sputum production and cough with shortness of breath concerning for pneumonia -with hypoxia, continue Oxygen supplementation, currently on 6 L, titrate down to baseline 45 L -continue Rocephin/azithromycin -continue Duo nebs -continue Solu-Medrol, taper dose to 40 mg Q12H -Ambulate with PT, recommend home with no physical therapy Atrial fibrillation, currently NSR -Continue anticoagulation with Xarelto -Patient takes Cardizem 120 mg extended release at home blood pressure dropped into the high 90s after taking Cardizem yesterday. Cardizem changed to 30 mg 4 times daily -Continue to monitor blood pressure and heart rate Rheumatoid arthritis/lupus Continue home medications Congestive heart failure -Currently appears compensated on home dose of Lasix. Elevated Liver Enzymes -Mildly elevated and trending down -monitor Discharge Planning: Anticipate discharge in 12 days pending improvement in breathing Case discussed with supervising physician Dr. García
[2018-06-24] MEDS ORDERED: MethylPREDNISolone Sod Succinate Inj 40 MG/ML Vial IV.PUSH SCH (14:00)
[2018-06-24] MEDS: Rivaroxaban 20 MG Tablet PO SCH (17:34)
[2018-06-25] MEDS: Azithromycin Inj 500 MG in Sodium Chlor 0.9% Inj 250 ML IV.SIG SCH ×2 (00:45→23:14)
[2018-06-25] MEDS: MethylPREDNISolone Sod Succinate Inj 40 MG/ML Vial IV.PUSH SCH ×2 (02:45→15:40)
[2018-06-25] MEDS: Senna/Docusate Sodium 8.6/50 MG Tablet PO SCH ×2 (08:28→20:49)
[2018-06-25] MEDS: dilTIAZem 30 MG Tablet PO SCH ×4 (08:28→20:49)
[2018-06-25] MEDS: Furosemide 20 MG Tablet PO SCH (08:28)
[2018-06-25] MEDS: azaTHIOprine 50 MG Tablet PO SCH (08:28)
[2018-06-25] MEDS: Hydroxychloroquine 200 MG Tablet PO SCH (08:28)
[2018-06-25] MEDS: ATOVAQUONE 750 MG/5 ML PO SCH (08:29)
--- NOTE | 2018-06-25 14:32 | P.PN ---
Subjective Interval history: Follow-up visit for COPD exacerbation, history of A. fib and CHF. Patient seen and examined sitting up in bed in no acute distress. Patient reports she continues to have shortness of breath with exertion, reports that this is unchanged since she first came to the hospital. Denies any nausea, vomiting, fevers or chills. Intermittent nonproductive cough. Physical Exam Vital signs: Vital Signs 06/24/18 16:00 06/24/18 16:30 06/24/18 19:00 Temperature 97.5 F L 97.6 F Pulse Rate 86 89 87 Respiratory Rate 17 16 17 Blood Pressure 104/70 115/63 Pulse Oximetry 94 L 99 06/24/18 20:00 06/24/18 20:15 06/24/18 20:16 Temperature 98.1 F Pulse Rate 98 H 87 Respiratory Rate 20 17 Blood Pressure 116/77 Pulse Oximetry 92 L 94 L 06/25/18 00:00 06/25/18 00:02 06/25/18 04:00 Temperature 97.7 F 97.1 F L Pulse Rate 100 H 98 H 92 H Respiratory Rate 20 16 18 Blood Pressure 96/59 L 116/81 Pulse Oximetry 95 96 06/25/18 04:26 06/25/18 07:38 06/25/18 08:00 Temperature 97.4 F L Pulse Rate 94 H 93 H 43 L Respiratory Rate 16 16 18 Blood Pressure 111/80 Pulse Oximetry 94 L 06/25/18 08:03 06/25/18 08:33 06/25/18 12:00 Temperature 97.3 F L Pulse Rate 92 H 93 H Respiratory Rate 17 Blood Pressure 103/67 Pulse Oximetry 91 L 89 L 06/25/18 12:02 Temperature Pulse Rate 92 H Respiratory Rate 16 Blood Pressure Pulse Oximetry Intake & Output 06/24/18 06/25/18 06/25/18 18:59 06:59 18:59 Intake Total 1300 / 1300 350 / 350 Balance 1300 / 1300 350 / 350 Weight 66.8 kg Intake: IV 350 / 350 Azithromycin Inj 500 MG In NS 250 / 250 Inj 250 ML @ 250 mls/hr IV.SIG Q24H [facility] Rx#:[id number] Rocephin Inj 1,000 MG In NS Inj 100 / 100 100 ML @ 200 mls/hr IV.SIG Q24H [facility] Rx#:[id number] Oral 1300 / 1300 Other: # Voids 3 1 Date of Last Bowel Movement 06/22/18 06/25/18 # Bowel Movements 0 1 Narrative: GENERAL: Well-developed well-nourished. In no acute distress. Appears comfortable on 5 L O2. SKIN: Warm and dry. No lesions noted. CARDIOVASCULAR: Regular rate and rhythm. No murmur appreciated. RESPIRATORY: No accessory muscle use. Left lower lobe crackles, diminished on right side clear on upper lobes. GASTROINTESTINAL: Abdomen soft, non-tender, nondistended. Bowel sounds x4. MUSCULOSKELETAL: No obvious deformities. No clubbing or cyanosis. Bilateral lower extremity trace edema. NEUROLOGICAL: Awake and alert. Moves upper and lower extremities spontaneously. Normal speech. PSYCHIATRIC: Appropriate mood and affect; insight and judgment normal. Results - Labs CBC & Chem 7: 06/23/18 05:57 06/23/18 05:57 Microbiology 06/21/18 23:35 Blood - Peripheral Aerobic Blood Culture - Preliminary No growth in 4 days 06/21/18 23:35 Blood - Peripheral Anaerobic Blood Culture - Preliminary No growth in 4 days 06/21/18 23:30 Blood - Peripheral Aerobic Blood Culture - Preliminary No growth in 4 days 06/21/18 23:30 Blood - Peripheral Anaerobic Blood Culture - Preliminary No growth in 4 days Assessment and Plan - Plan 63-year-old female with a past medical history for atrial fibrillation anticoagulated with Xarelto, CHF, COPD, GERD, lupus, pulmonary fibrosis, pulmonary hypertension, rheumatoid arthritis, Raynaud's phenomena who presented for evaluation of shortness of breath. The patient reports she has been having increasing shortness of breath, worse with exertion for the past several weeks. COPD exacerbation/PNA Chest x-ray significant for increased interstitial markings consistent with acute versus chronic interstitial process, given increased sputum production and cough with shortness of breath concerning for pneumonia -with hypoxia, continue Oxygen supplementation, work towards titrating down to 4 -5 L which he uses at home. -continue Rocephin/azithromycin -continue Duo nebs -continue Solu-Medrol, taper dose to 40 mg Q12H -Ambulate with PT, recommend home with no physical therapy -Start IV Lasix, to assist with respiratory status as well Atrial fibrillation, currently NSR -Continue anticoagulation with Xarelto -Patient takes Cardizem 120 mg extended release at home however experience hypotension previously. Cardizem changed to 30 mg 4 times daily -Blood pressure and heart rate stable today. Rheumatoid arthritis/lupus Continue home medications Congestive heart failure -LLL crackles noted on exam along with trace lower extremity swelling. BNP> 1000 -Switch p.o. Lasix to IV Elevated Liver Enzymes -Mildly elevated and trending down -monitor DVT prophylaxisXarelto Discussed Condition With: Discussed with patient and RN. Discharge Planning: Patient would like to consider discharge to rehab once his respiratory status improves.
[2018-06-25] MEDS: Rivaroxaban 20 MG Tablet PO SCH (17:57)
[2018-06-26] MEDS: MethylPREDNISolone Sod Succinate Inj 40 MG/ML Vial IV.PUSH SCH ×2 (03:00→16:13)
[2018-06-26 06:58] LABS: Alanine Aminotransferase 124 U/L (10-53); Anion Gap 5 meq/L (5-15); Aspartate Aminotransferase 29 U/L (15-37); Blood Urea Nitrogen 22 mg/dL (7-18); Calcium 8.4 mg/dL (8.5-10.1); Carbon Dioxide 29.7 meq/L (21.0-32.0); Chloride 106 meq/L (98-107); Glomerular Filtration Rate Greater Than 89 mL/min (>89); Glucose,Random 131 mg/dL (74-106); Potassium 4.7 meq/L (3.5-5.1); Sodium 141 meq/L (136-145)
[2018-06-26 07:00] LABS: Alkaline Phosphatase 169 U/L (45-117); Total Protein 5.9 g/dL (6.4-8.2)
[2018-06-26] MEDS: azaTHIOprine 50 MG Tablet PO SCH (08:07)
[2018-06-26] MEDS: dilTIAZem 30 MG Tablet PO SCH ×4 (08:12→20:47)
[2018-06-26] MEDS: Senna/Docusate Sodium 8.6/50 MG Tablet PO SCH ×2 (08:12→20:47)
[2018-06-26] MEDS: ATOVAQUONE 750 MG/5 ML PO SCH (08:12)
[2018-06-26] MEDS: Hydroxychloroquine 200 MG Tablet PO SCH (08:12)
--- NOTE | 2018-06-26 14:30 | P.PN ---
Subjective Interval history: Follow-up COPD and heart failure. States she is breathing better currently on 5 L nasal cannula. States she is still having dyspnea on exertion Physical Exam Vital signs: Vital Signs 06/25/18 15:54 06/25/18 16:00 06/25/18 20:00 Temperature 97.6 F Pulse Rate 90 91 H 98 H Respiratory Rate 16 17 Blood Pressure 109/67 Pulse Oximetry 89 L 06/25/18 20:09 06/25/18 20:44 06/25/18 23:44 Temperature 98.0 F Pulse Rate 89 89 90 Respiratory Rate 15 24 20 Blood Pressure 129/71 Pulse Oximetry 95 06/26/18 00:00 06/26/18 00:13 06/26/18 03:41 Temperature 98.2 F Pulse Rate 88 95 H 95 H Respiratory Rate 17 20 Blood Pressure 110/71 Pulse Oximetry 94 L 06/26/18 04:00 06/26/18 04:27 06/26/18 08:20 Temperature 97.3 F L Pulse Rate 87 85 103 H Respiratory Rate 17 16 Blood Pressure 108/71 Pulse Oximetry 96 91 L 06/26/18 12:00 06/26/18 13:07 Temperature 98.3 F Pulse Rate 91 H 92 H Respiratory Rate 17 16 Blood Pressure 102/92 H Pulse Oximetry 91 L Intake & Output 06/25/18 06/26/18 06/26/18 18:59 06:59 18:59 Intake Total 1200 / 1200 830 / 830 Balance 1200 / 1200 830 / 830 Weight 66 kg Intake: IV 350 / 350 Azithromycin Inj 500 MG In NS 250 / 250 Inj 250 ML @ 250 mls/hr IV.SIG Q24H [facility] Rx#:[id number] Rocephin Inj 1,000 MG In NS Inj 100 / 100 100 ML @ 200 mls/hr IV.SIG Q24H [facility] Rx#:[id number] Oral 1200 / 1200 480 / 480 Other: # Voids 3 2 Date of Last Bowel Movement 06/25/18 06/25/18 # Bowel Movements 1 Narrative: GENERAL: Well-developed well-nourished. In no acute distress. Appears comfortable on 5 L O2. SKIN: Warm and dry. No lesions noted. CARDIOVASCULAR: Regular rate and rhythm. No murmur appreciated. RESPIRATORY: No accessory muscle use. Left lower lobe crackles, diminished on right side clear on upper lobes. GASTROINTESTINAL: Abdomen soft, non-tender, nondistended. Bowel sounds x4. MUSCULOSKELETAL: No obvious deformities. No clubbing or cyanosis. Bilateral lower extremity trace edema. NEUROLOGICAL: Awake and alert. Moves upper and lower extremities spontaneously. Normal speech. PSYCHIATRIC: Appropriate mood and affect; insight and judgment normal. Results - Labs CBC & Chem 7: 06/23/18 05:57 06/26/18 05:17 Laboratory Results - last 24 hr 06/26/18 05:17 Sodium 141 Potassium 4.7 Chloride 106 Carbon Dioxide 29.7 Anion Gap 5 BUN 22 H Creatinine 0.78 Estimated GFR Greater than 89 Random Glucose 131 H Calcium 8.4 L Total Bilirubin 0.2 AST 29 ALT 124 H Alkaline Phosphatase 169 H Total Protein 5.9 L Albumin 3.0 L Microbiology 06/21/18 23:35 Blood - Peripheral Aerobic Blood Culture - Final No growth in 5 days 06/21/18 23:35 Blood - Peripheral Anaerobic Blood Culture - Final No growth in 5 days 06/21/18 23:30 Blood - Peripheral Aerobic Blood Culture - Final No growth in 5 days 06/21/18 23:30 Blood - Peripheral Anaerobic Blood Culture - Final No growth in 5 days - Procedures none Assessment and Plan - Plan 63-year-old female with a past medical history for atrial fibrillation anticoagulated with Xarelto, CHF, COPD, GERD, lupus, pulmonary fibrosis, pulmonary hypertension, rheumatoid arthritis, Raynaud's phenomena who presented for evaluation of shortness of breath. The patient reports she has been having increasing shortness of breath, worse with exertion for the past several weeks. COPD exacerbation Chest x-ray significant for increased interstitial markings consistent with acute versus chronic interstitial process, given increased sputum production and cough with shortness of breath concerning for pneumonia -with hypoxia, continue Oxygen supplementation, work towards titrating down to 4 -5 L which she uses at home. -continue Rocephin/azithromycin -continue Duo nebs -continue Solu-Medrol, taper dose to 40 mg Q12H -Ambulate with PT, recommend home with no physical therapy -Ct IV Lasix, to assist with respiratory status as well -Obtain chest CT Atrial fibrillation, currently NSR -Continue anticoagulation with Xarelto -Patient takes Cardizem 120 mg extended release at home however experience hypotension previously. Cardizem changed to 30 mg 4 times daily -Blood pressure and heart rate stable today. Rheumatoid arthritis/lupus Continue home medications Congestive heart failure, acute exacerbation -LLL crackles noted on exam along with trace lower extremity swelling. BNP> 1000 -Switch p.o. Lasix to IV Elevated Liver Enzymes -Mildly elevated and trending down -monitor. Hold Lipitor DVT prophylaxisXarelto Reconsult physical therapy Discharge Planning: Not ready for discharge secondary to respiratory status
--- NOTE | 2018-06-26 17:21 | CT ---
EXAM DATE: 06/26/2018 5:14 PM EDT AGE/SEX: 63 years / Female INDICATIONS: Pneumonia CLINICAL DATA: This is the patient's initial encounter. Patient reports that signs and symptoms have been present for 1 day and indicates a pain score of 0/10. MEDICAL/SURGICAL HISTORY: Chronic obstructive pulmonary disease. Congestive heart failure. Hypert ension. Hiatal hernia pulmonary fibrosis None. RADIATION DOSE: 7.05 CTDI (mGy) COMPARISON: No prior exams available for comparison. TECHNIQUE: Multiple contiguous axial images were obtained through the chest without contrast. Image s were obtained in suspended respiration using multiple row detector helical technique. Using automa christopher exposure control and adjustment of the mA and/or kV according to patient size, radiation dose was kept as low as reasonably achievable to obtain optimal diagnostic quality images. DICOM format imag e data is available electronically for review and comparison. FINDINGS: LUNGS: Coarse interstitial changes are seen in both lungs worse in the bases on the right. There is no pleural effusion. There is no alveolar consolidation. AXILLARY/MEDIASTINUM: There is no axillary adenopathy or mediastinal adenopathy. Moderate coronary ca lcifications are noted. Pulmonary arteries are prominent centrally suggesting pulmonary hypertension. There is biventricular cardiomegaly with trace pericardial effusion BONES: Mild degenerative changes. UPPER ABDOMINAL CONTENTS: Grossly unremarkable. CONCLUSION: 1. Coarse interstitial changes both lung bases worse on the right 2. No pleural effusion 3. Prominent pulmonary arteries suggesting pulmonary artery hypertension with biventricular cardiome miquel Electronically signed by: Terrance Castillo MD 06/26/2018 5:20 PM EDT
[2018-06-26] MEDS: Rivaroxaban 20 MG Tablet PO SCH (17:46)
[2018-06-26] MEDS: Azithromycin Inj 500 MG in Sodium Chlor 0.9% Inj 250 ML IV.SIG SCH (23:46)
[2018-06-27] MEDS: MethylPREDNISolone Sod Succinate Inj 40 MG/ML Vial IV.PUSH SCH (03:02)
[2018-06-27 08:49] LABS: Alanine Aminotransferase 207 U/L (10-53); Anion Gap 6 meq/L (5-15); Aspartate Aminotransferase 50 U/L (15-37); Blood Urea Nitrogen 27 mg/dL (7-18); Carbon Dioxide 28.9 meq/L (21.0-32.0); Chloride 109 meq/L (98-107); Glomerular Filtration Rate Greater Than 89 mL/min (>89); Glucose,Random 158 mg/dL (74-106); Magnesium 2.7 mg/dL (1.5-2.5); Potassium 4.5 meq/L (3.5-5.1); Sodium 144 meq/L (136-145)
[2018-06-27 08:50] LABS: Alkaline Phosphatase 201 U/L (45-117); Total Protein 5.7 g/dL (6.4-8.2)
[2018-06-27] MEDS ORDERED: Heparin - SQ 10,000 UNITS/ML Vial ONE (09:01)
--- NOTE | 2018-06-27 10:14 | P.CONCC ---
History of Present Illness Service: Critical care medicine Consult date: 06/27/18 Reason for Consult: Cardiopulmonary arrest Primary Care Provider: UNKNOWN Chief Complaint: Cardiopulmonary arrest History of Present Illness: 63-year-old female with a past medical history for atrial fibrillation anticoagulated with Xarelto, CHF, COPD, GERD, lupus, pulmonary fibrosis, pulmonary hypertension, rheumatoid arthritis in Raynaud's presents to the emergency department for evaluation of shortness of breath. The patient reports she has been having increasing shortness of breath, worse with exertion for the past several weeks. She states today that it was so bad she came to the emergency department for further evaluation. She reports that she is unable to walk more than a few steps without becoming severely short of breath and having to rest. She endorses a cough productive of sputum. She denies any fever/chills. No chest pain. No abdominal pain. No nausea/vomiting/diarrhea. No lateralizing signs/symptoms. 06/26: Patient is on 5 L of home oxygen permanently for pulmonary fibrosis. Oxygen saturation greater than 90% on 5 L today. Work of breathing appears to improve. 06/27: Patient called nurses station early this morning around 8:30 AM complaining of shortness of breath. Upon arrival nurse finds patient in full cardiopulmonary arrest. Code is called and CPR is initiated by the family medicine service who is rounding on the floor at the time. I arrived to see excellent ventilation and compressions in progress. The underlying rhythm was asystole. A full ACLS protocol was instituted. After several rounds of epinephrine the patient converted to a rhythm of ventricular fibrillation from which she was cardioverted to sinus mechanism after infusion of 300 mg of amiodarone. After 30 minutes of continuous CPR we finally established a perfusing rhythm verifiable only by Doppler and the blood pressure did not record. Additional vasopressors were instituted and epinephrine drip was initiated to drive her bradycardia higher. This rhythm deteriorated to a bradycardia each became unresponsive to chronotropic agents. She was pronounced at 0925 hours with a rhythm of asystole. At this juncture we were unable to achieve any iliac activity despite aggressive continuation of ACLS protocol and vasoactive medications. Family was not immediately present at the time of the arrest. I spoke with Dr. García who is the patient's primary physician. Review of Systems Unobtainable as patient is in full cardiopulmonary arrest. PMFSH - History History Provided By: Patient, Medical Record - Medical History Medical History: Medical History (Last Reviewed 06/27/18 @ 07:04 by Beatriz Jimenez) Atrial fibrillation CHF (congestive heart failure) Emphysema, unspecified Esophageal dysmotility GERD (gastroesophageal reflux disease) Hiatal hernia Hx of hysterectomy Hypertension Kidney stone Lupus Pulmonary fibrosis Pulmonary hypertension Raynaud disease Rheumatoid arthritis - Family History Family History: Family History (Last Reviewed 06/27/18 @ 08:08 by Guillermo Candelaria) Other Congestive heart failure - Tobacco History Second Hand Smoke Exposure: No Tobacco Use In Past 30 Days: No Smoking Status: Never smoker - Alcohol History How Often Do You Have a Drink Containing Alcohol: Monthly or less - Substance Use History Substance History: No History of Abuse - Travel History Recent Travel in the [place] Within the Last 8 Weeks: No Recent Travel Out of the Country Within the Last 8 Weeks: No - Immunization History Tetanus Immunization: Unsure Hx Influenza Vaccine This Season: No Medications and Allergies Active Medications: Active Medications Acetaminophen (Tylenol) 650 mg PO Q4H PRN PRN Reason: Temp > 100.4 Al Hydroxide/Mg Hydroxide (Milk Of Magnesia Liq) 30 ml PO Q12H PRN PRN Reason: Mild Constipation Albuterol (Albuterol Neb (Prn)) 2.5 mg NEB Q2HR NEB PRN PRN Reason: SHORTNESS OF BREATH/WHEEZING Last Admin: 06/26/18 08:20 Dose: 2.5 mg Albuterol (Duoneb Neb (Misael)) 1 ampul NEB Q6HR WHILE AWAKE NEB MISAEL Last Admin: 06/27/18 09:41 Dose: Not Given Atorvastatin Calcium (Lipitor) 20 mg PO DAILY COUNT INCLUDES THE [facility] Last Admin: 06/26/18 08:12 Dose: 20 mg Atovaquone (Mepron Liq) 750 mg PO DAILY MISAEL Last Admin: 06/26/18 08:12 Dose: 750 mg Azathioprine (Imuran) 50 mg PO DAILY COUNT INCLUDES THE [facility] Last Admin: 06/26/18 08:07 Dose: 50 mg Bisacodyl (Dulcolax Supp) 10 mg RECTAL DAILY PRN PRN Reason: SEVERE CONSITIPATION Diltiazem HCl (Cardizem) 30 mg PO QID COUNT INCLUDES THE [facility] Last Admin: 06/26/18 20:47 Dose: Not Given Furosemide (Lasix Inj) 20 mg IV.PUSH DAILY COUNT INCLUDES THE [facility] Last Admin: 06/26/18 08:13 Dose: 20 mg Hydroxychloroquine Sulfate (Plaquenil) 200 mg PO DAILY COUNT INCLUDES THE [facility] Last Admin: 06/26/18 08:12 Dose: 200 mg Azithromycin 500 mg/ Sodium (Chloride) 250 mls @ 250 mls/hr IV.SIG Q24H COUNT INCLUDES THE [facility] Last Infusion: 06/27/18 00:46 Dose: Infused Ceftriaxone Sodium 1,000 mg/ (Sodium Chloride) 100 mls @ 200 mls/hr IV.SIG Q24H COUNT INCLUDES THE [facility] Last Infusion: 06/26/18 23:45 Dose: Infused Lactulose (Lactulose Liq) 30 ml PO DAILY PRN PRN Reason: SEVERE CONSITIPATION Methylprednisolone Sodium Succinate (Solumedrol Inj) 40 mg IV.PUSH Q12H COUNT INCLUDES THE [facility] Last Admin: 06/27/18 03:02 Dose: 40 mg Ondansetron HCl (Zofran Inj) 4 mg IV.PUSH Q6H PRN PRN Reason: NAUSEA OR VOMITING Pt Own Macitentan 10 (Mg Tablet) 1 each PO DAILY COUNT INCLUDES THE [facility] Rivaroxaban (Xarelto) 20 mg PO DAILY@1800 COUNT INCLUDES THE [facility] Last Admin: 06/26/18 17:46 Dose: 20 mg Senna/Docusate Sodium (Cathryn-Colace) 1 tab PO BID COUNT INCLUDES THE [facility] Last Admin: 06/26/18 20:47 Dose: 1 tab Sennosides (Senokot) 17.2 mg PO Q12H PRN PRN Reason: Moderate Constipation Sodium Chloride (Ns Flush) 2 ml IV.FLUSH BID COUNT INCLUDES THE [facility] Last Admin: 06/26/18 20:47 Dose: 2 ml Sodium Chloride (Ns Flush) 2 ml IV.FLUSH PRN PRN PRN Reason: FLUSH AFTER USING IV ACCESS Sotalol HCl (Betapace) 80 mg PO Q12HR COUNT INCLUDES THE [facility] Last Admin: 06/26/18 20:47 Dose: 80 mg Allergies Allergy/AdvReac Type Severity Reaction Status Date / Time No Known Allergies Allergy Unverified 06/21/18 20:22 Home Medications Medication Instructions Recorded Confirmed Type atovaquone 750 mg PO DAILY 06/21/18 06/21/18 History azathioprine 50 mg PO DAILY 06/21/18 06/21/18 History cholecalciferol (vitamin D3) 2,000 unit PO DAILY 06/21/18 06/21/18 History [Vitamin D3] diltiazem HCl [Cardizem CD] 120 mg PO DAILY 06/21/18 06/21/18 History furosemide 20 mg PO DAILY 06/21/18 06/21/18 History hydroxychloroquine [Plaquenil] 200 mg PO DAILY 06/21/18 06/21/18 History levalbuterol HCl 0.63 mg INHALATION Q4-6H PRN 06/21/18 06/21/18 History macitentan [Opsumit] 10 mg PO DAILY 06/21/18 06/21/18 History potassium chloride 10 meq PO BID 06/21/18 06/21/18 History prednisone 5 mg PO DAILY 06/21/18 06/21/18 History rivaroxaban [Xarelto] 20 mg PO QPM 06/21/18 06/21/18 History rosuvastatin [Crestor] 10 mg PO DAILY 06/21/18 06/21/18 History sotalol 80 mg PO Q12H 06/21/18 06/21/18 History treprostinil [Tyvaso] 1 inh INHALATION Q4H 06/21/18 06/21/18 History Physical Exam Vital signs: Vital Signs 06/26/18 12:00 06/26/18 13:07 06/26/18 16:00 Temperature 98.3 F 97.9 F Pulse Rate 91 H 92 H 90 Respiratory Rate 17 16 17 Blood Pressure 102/92 H 118/67 Pulse Oximetry 91 L 97 06/26/18 20:00 06/26/18 20:26 06/26/18 20:41 Temperature 97.8 F Pulse Rate 91 H 86 90 Respiratory Rate 18 18 Blood Pressure 107/69 Pulse Oximetry 95 06/27/18 00:23 06/27/18 00:44 06/27/18 03:49 Temperature 97.7 F Pulse Rate 93 H 83 79 Respiratory Rate 18 Blood Pressure 111/71 Pulse Oximetry 99 06/27/18 04:54 Temperature 97.3 F L Pulse Rate 81 Respiratory Rate 18 Blood Pressure 105/72 Pulse Oximetry 97 Intake & Output 06/26/18 06/27/18 06/27/18 18:59 06:59 18:59 Intake Total 1440 / 1440 1130 / 1130 Balance 1440 / 1440 1130 / 1130 Weight 66 kg Intake: IV 350 / 350 Azithromycin Inj 500 MG In NS 250 / 250 Inj 250 ML @ 250 mls/hr IV.SIG Q24H [facility] Rx#:[id number] Rocephin Inj 1,000 MG In NS Inj 100 / 100 100 ML @ 200 mls/hr IV.SIG Q24H [facility] Rx#:[id number] Oral 1440 / 1440 780 / 780 Other: # Voids 4 4 Date of Last Bowel Movement 06/26/18 Narrative: General: Unresponsive Head: Atraumatic, normal Eyes: Pupils 3 mm and sluggishly reactive to light during chest compressions. Neck: Supple, airway widely patent, easily ventilated. Lungs: Light bilateral wheezes, diffuse crackles. Heart: Tones absent, neck veins tensely distended Abdomen: Benign, no guarding. Extremities: Tepid, poorly perfused Neuro: She attempts spontaneous respiratory efforts. Pupils are 3 mm and react sluggishly to light. Gag reflex intact. Otherwise unresponsive. Assessment and Plan - Assessment and Plan Plan: Assessment and Plan - Plan Assessment/plan: 1. Cardiopulmonary arrest -See code sheet. Patient at 0925 hours on 06/27/2018 2. COPD exacerbation/PNA Patient with hypoxia, requiring supplemental oxygen Chest x-ray significant for increased interstitial markings consistent with acute versus chronic interstitial process, given increased sputum production and cough with shortness of breath concerning for pneumonia Rocephin/azithromycin Duo [facility] Solu-Medrol 3. Atrial fibrillation Continue anticoagulation with Xarelto Continue home medications 4. Rheumatoid arthritis/lupus Continue home medications 5. Hypertension/pulmonary hypertension/CHF Continue home medications 6. Urinary tract infection Patient previously diagnosed with urinary tract infection, has 1 more day of Bactrim UA pending Antibiotics as above FEN Electrolytes: Monitor and replete as needed Xarelto Overall impression: The woman presented with a COPD exacerbation and acute worsening of her hypoxemic respiratory failure. She appeared to stabilize during her first 24 hours in the hospital. Early today she developed worsening shortness of breath and subsequently sustained a full cardiopulmonary arrest from which she could not be resuscitated following 45 minutes of continuous ACLS protocol CPR. Immediate cause of is unclear. Our inability to obtain perfusion despite a sinus rhythm implicates obstruction at the cardiac level such as pulmonary embolism. She was however on Pradaxa chronically for atrial fibrillation show this is less likely. Critical care time 90 minutes aside from invasive procedures.
--- NOTE | 2018-06-27 10:16 | P.PCN ---
Procedure: Diagnosis: Cardiopulmonary arrest Procedure: Orotracheal intubation using 7.5 tube Narrative: Bag mask ventilation during cardiopulmonary resuscitation. During a pulse check the patient was intubated the orotracheal route using a 7.52. Position was confirmed with CO2 detection, bilateral breath sounds. Cardiopulmonary resuscitation was ongoing.
--- NOTE | 2018-06-27 10:17 | P.DS ---
Date of admission: 06/21/18 23:02 Primary care physician: UNKNOWN Attending physician on discharge: You Morgan Brief History from admission: 63-year-old female with a past medical history for atrial fibrillation anticoagulated with Xarelto, CHF, COPD, GERD, lupus, pulmonary fibrosis, pulmonary hypertension, rheumatoid arthritis in Kumar nods presents to the emergency department for evaluation of shortness of breath. The patient reports she has been having increasing shortness of breath, worse with exertion for the past several weeks. She states today that it was so bad she came to the emergency department for further evaluation. She reports that she is unable to walk more than a few steps without becoming severely short of breath and having to rest. She endorses a cough productive of sputum. She denies any fever/chills. No chest pain. No abdominal pain. No nausea/vomiting/diarrhea. No lateralizing signs/symptoms. Patient update on day of discharge: 06/26: Patient is on 5 L of home oxygen permanently for pulmonary fibrosis. Oxygen saturation greater than 90% on 5 L today. Work of breathing appears to improve. 06/27: Patient called nurses station early this morning around 8:30 AM complaining of shortness of breath. Upon arrival nurse finds patient in full cardiopulmonary arrest. Code is called and CPR is initiated by the family medicine service who is rounding on the floor at the time. I arrived to see excellent ventilation and compressions in progress. The underlying rhythm was asystole. A full ACLS protocol was instituted. After several rounds of epinephrine the patient converted to a rhythm of ventricular fibrillation from which she was cardioverted to sinus mechanism after infusion of 300 mg of amiodarone. After 30 minutes of continuous CPR we finally established a perfusing rhythm verifiable only by Doppler and the blood pressure did not record. Additional vasopressors were instituted and epinephrine drip was initiated to drive her bradycardia higher. This rhythm deteriorated to a bradycardia each became unresponsive to chronotropic agents. She was pronounced at 0925 hours with a rhythm of asystole. At this juncture we were unable to achieve any iliac activity despite aggressive continuation of ACLS protocol and vasoactive medications. Family was not immediately present at the time of the arrest. I spoke with Dr. García who is the patient's primary physician. DS: Diagnosis - Discharge Diagnosis (1) Cardiac arrest due to respiratory disorder Status: Acute (2) CHF (congestive heart failure) Status: Acute (3) COPD exacerbation Status: Acute (4) Acute on chronic respiratory failure with hypoxemia Status: Acute DS: Summary Hospital Course: 06/26: Patient is on 5 L of home oxygen permanently for pulmonary fibrosis. Oxygen saturation greater than 90% on 5 L today. Work of breathing appears to improve. 06/27: Patient called nurses station early this morning around 8:30 AM complaining of shortness of breath. Upon arrival nurse finds patient in full cardiopulmonary arrest. Code is called and CPR is initiated by the family medicine service who is rounding on the floor at the time. I arrived to see excellent ventilation and compressions in progress. The underlying rhythm was asystole. A full ACLS protocol was instituted. After several rounds of epinephrine the patient converted to a rhythm of ventricular fibrillation from which she was cardioverted to sinus mechanism after infusion of 300 mg of amiodarone. After 30 minutes of continuous CPR we finally established a perfusing rhythm verifiable only by Doppler and the blood pressure did not record. Additional vasopressors were instituted and epinephrine drip was initiated to drive her bradycardia higher. This rhythm deteriorated to a bradycardia each became unresponsive to chronotropic agents. She was pronounced at 0925 hours with a rhythm of asystole. At this juncture we were unable to achieve any iliac activity despite aggressive continuation of ACLS protocol and vasoactive medications. Family was not immediately present at the time of the arrest. I spoke with Dr. García who is the patient's primary physician. - Time Spent with Patient Total time spent providing and/or coordinating discharge services: Greater than 30 minutes - Quality: VTE Deep Vein Thrombosis/Pulmonary Embolism Present on Admission: No Exam Vital signs: Vital Signs 06/26/18 12:00 06/26/18 13:07 06/26/18 16:00 Temperature 98.3 F 97.9 F Pulse Rate 91 H 92 H 90 Respiratory Rate 17 16 17 Blood Pressure 102/92 H 118/67 Pulse Oximetry 91 L 97 06/26/18 20:00 06/26/18 20:26 06/26/18 20:41 Temperature 97.8 F Pulse Rate 91 H 86 90 Respiratory Rate 18 18 Blood Pressure 107/69 Pulse Oximetry 95 06/27/18 00:23 06/27/18 00:44 06/27/18 03:49 Temperature 97.7 F Pulse Rate 93 H 83 79 Respiratory Rate 18 Blood Pressure 111/71 Pulse Oximetry 99 06/27/18 04:54 Temperature 97.3 F L Pulse Rate 81 Respiratory Rate 18 Blood Pressure 105/72 Pulse Oximetry 97 Intake & Output 06/26/18 06/27/18 06/27/18 18:59 06:59 18:59 Intake Total 1440 / 1440 1130 / 1130 Balance 1440 / 1440 1130 / 1130 Weight 66 kg Intake: IV 350 / 350 Azithromycin Inj 500 MG In NS 250 / 250 Inj 250 ML @ 250 mls/hr IV.SIG Q24H [facility] Rx#:[id number] Rocephin Inj 1,000 MG In NS Inj 100 / 100 100 ML @ 200 mls/hr IV.SIG Q24H [facility] Rx#:[id number] Oral 1440 / 1440 780 / 780 Other: # Voids 4 4 Date of Last Bowel Movement 06/26/18 Narrative: . Results Procedures completed during hospitalization: none Labs on day of discharge: Labs from last 24 hours 06/27/18 06:58 Sodium 144 Potassium 4.5 Chloride 109 H Carbon Dioxide 28.9 Anion Gap 6 BUN 27 H Creatinine 0.73 Estimated GFR Greater than 89 Random Glucose 158 H Calcium 9.0 Magnesium 2.7 H Total Bilirubin 0.3 AST 50 H ALT 207 H Alkaline Phosphatase 201 H Total Protein 5.7 L Albumin 3.0 L - Impressions ITS Impressions Chest X-Ray 06/21/18 20:31 CONCLUSION: 1. Mild increased interstitial markings are noted consistent with acute or chronic interstitial process. Clinical correlation is recommended. 2. Mild cardiomegaly. Chest CT 06/26/18 00:00 CONCLUSION: 1. Coarse interstitial changes both lung bases worse on the right 2. No pleural effusion 3. Prominent pulmonary arteries suggesting pulmonary artery hypertension with biventricular cardiomegaly Discharge Plan - Discharge Disposition Patient Disposition: 20 - Discharge Details Anticipated Discharge Date: 06/21/18 Date/Time: 06/27/18 09:23 - Physicians Team Primary Care Provider: UNKNOWN, Attending Provider: Wili García
[2018-06-27 10:37] VITALS: BP 108/65; PULSE 94; RESP 16; TEMP 97.4
[2018-06-27] MEDS: dilTIAZem 30 MG Tablet PO SCH (12:22)
[2018-06-27] MEDS: ATOVAQUONE 750 MG/5 ML PO SCH (12:22)
[2018-06-27] MEDS: azaTHIOprine 50 MG Tablet PO SCH (12:22)
[2018-06-27] MEDS: Senna/Docusate Sodium 8.6/50 MG Tablet PO SCH (12:23)
[2018-06-27] MEDS: Hydroxychloroquine 200 MG Tablet PO SCH (12:23)
[2018-06-27 15:04] VITALS: O2SAT 92
[2018-06-27] MEDS ORDERED: Sodium Bicarbonate 8.4% Inj 50 MEQ/50 ML Syringe IV.CONT ONE (17:24)
[2018-06-27] MEDS ORDERED: Norepinephrine Inj 4 MG/4 ML Ampul IV.CONT ONE (17:24)
[2018-06-27] MEDS ORDERED: Calcium Chloride Inj 1 GM/10 ML Syringe IV.CONT ONE (17:24)
--- NOTE | 2018-06-27 23:08 | P.PNADD ---
Addendum to Inpatient Note Reason for Addendum: Additional Documentation Additional information: At 0835 AM the inpatient Family Medicine Team A was rounding in [facility] when we heard the overhead announcement of a Code Blue on [address] in [facility]. Sara Lima, and MSBridger Longoria responded and were the first physicians in the room. Respiratory therapy was ventilating well and nursing was already on the scene performing good chest compressions on Ms Ceballos, a 63 YO female with PMHx of atrial fibrillation anticoagulated with Xarelto, CHF, COPD, GERD, lupus, pulmonary fibrosis, pulmonary hypertension, rheumatoid arthritis in Rayna[place]'s who had presented to the emergency department for evaluation of shortness of breath two days earlier. Approximately 8 minutes earlier the pt's nurse had been in the pt's room and had departed the room for about 5 minutes prior to pt calling from the room stating she was acutely SOB. Upon entering the room, nursing witnessed the pt unresponsive, without a pulse and in asystole. Nursing initiated Code Blue. Dr Centeno led the care team in execution of ACLS protocol with Dr Newell, 4megha Longoria and other staff alternated chest compressions. At approximately 0845, Dr Morgan entered the room and assisted in Code response, taking over for Dr Centeno around 0905 AM. The following is a chronology of events as recorded in the patient's room: 0835 - chest compressions begin, crash cart in room, defibrillator pads applied 0838 - First dose of epinephrine, check for pulse, no pulse felt 0841 - Second dose of epinephrine, check for pulse, no pulse felt 0845 - 1 amp Bicarb, airway could not be secured with intubation, check for pulse, no pulse felt; IV access obtained 0846 - pulse check - weak pulse with doppler, pt attempting to breathe, but in Vtach 0847 - Shock delivered by defibrillator; third dose epinephrine 0849 - Amiodarone 300 mg administered 0850 - pulse check with dopplers 0851 - Fourth dose epinephrine 0855 - Levophed drip at 30 mcg 0900 - Fifth dose of epinephrine 0906 - Heparin 5,000 units administered 0912 - Pt intubated It is believed that the pt had possibly a massive pulmonary embolism as pt was bradycardic and there was a sinus rhythm following the shock; however, we could only obtain weak pulsatile activity on doppler only, no palpable pulse on femoral or carotid arteries, after approximately 10 minutes of chest compressions and ventilation. Unfortunately, after 45 minutes of chest compressions, the pt again arrested and could not be revived.
== END 2018-06-27 17:25 | disposition expired ==
LOC: NEPE 20:16 → NEDA 23:02 → N07 06-22 00:59
PROVIDERS: ADMIT Internal Medicine; ATTEND Internal Medicine